=== PATIENT | female | born 2005 | race Caucasian/White ===

== ENCOUNTER 2024-04-15 18:07 | Emergency (ER) | payer OTHER ==
[~2024-04-15] VITALS: Ht 162.6 cm; Wt 50.0 kg
[2024-04-15] MEDS ORDERED: AMOX-580 PO (18:36)
[2024-04-15 18:48] VITALS: BP 115/77; PULSE 101; O2SAT 100
[2024-04-15] MEDS ORDERED: CIPR7.5D7 OT (19:01)
[2024-04-15] MEDS: ketorolac trometh 30MG/ML vial 30 MG/ML VIAL IM ONE (19:17)
[2024-04-15 19:18] VITALS: RESP 18
[2024-04-15] MEDS: ondansetron 4mg rapidly disintigrating tab PO ONE (19:18)
[2024-04-15] MEDS: HYDROcodone/acetaminophen 5mg/325mg tablet PO ONE (19:18)
[2024-04-15 19:34] VITALS: TEMP 99.7
== END 2024-04-15 19:36 | disposition home or self-care (01) ==
LOC: ER 18:08
DX: H66.92 Otitis media, unspecified, left ear (principal); H60.8X2 Other otitis externa, left ear; Z79.1 Long term (current) use of non-steroidal anti-inflammatories (NSAID)
CPT/HCPCS: 96372; 99283; J1885